=== PATIENT | male | born 1985 | race Caucasian/White ===

== ENCOUNTER 2019-04-01 15:27 | Emergency (ER) | payer OTHER ==
[~2019-04-01] VITALS: Ht 188 cm; Wt 102.1 kg
[2019-04-01 15:27] VITALS: BP_SYST 160
[2019-04-01 16:03] VITALS: BP_SYST 160
== END 2019-04-01 16:03 ==
LOC: SED 15:27
DX: Z04.1 Encounter for examination and observation following transport accident (principal); R03.0 Elevated blood-pressure reading, without diagnosis of hypertension; V43.52XA Car driver injured in collision with other type car in traffic accident, initial encounter; Y93.89 Activity, other specified; Y92.410 Unspecified street and highway as the place of occurrence of the external cause; Y99.8 Other external cause status
CPT/HCPCS: 99283